=== PATIENT | female | born 1935 | race Caucasian/White ===

== ENCOUNTER 2016-10-05 19:19 | Emergency (ER) | payer MEDICARE ==
[~2016-10-05] VITALS: Ht 177.8 cm; Wt 90.0 kg
[~2016-10-05 19:19] MED LIST: ALENDRONATE70 MG PO; BACTRIM DS1 TAB PO; COUMADIN5 MG PO; FUROSEMIDE40 MG PO; LASIX 20 MG TAB20 MG PO; LASIX 40 MG40 MG/TAB PO; LEVOTHYROXIN75 MCG PO; LOPRESSOR12.5 MG PO; LOVENOX 10100 MG/1 M SC; METOPROL TAR25 MG PO; OMEPRAZOLE20 M1 PO; POTASSIUM CHLO20 ME1 PO; PRAVASTATIN SOD40 MG PO; SYMBICORT1 AE1 IN; VENTOLIN HFA IN; WARFARIN1 MG PO; WARFARIN4 MG PO
[2016-10-05] MEDS ORDERED: PRAVASTATIN SOD40 MG PO (19:50)
[2016-10-05] MEDS ORDERED: KLOR-CON M2020 MEQ PO (19:51)
[2016-10-05] MEDS ORDERED: LEVOTHYROXIN75 MC1 PO (19:52)
[2016-10-05] MEDS ORDERED: ALENDRONATE SOD70 MG PO (19:53)
[2016-10-05] MEDS ORDERED: OMEPRAZOLE20 M2 PO (19:53)
[2016-10-05] MEDS ORDERED: COUMADIN5 MG PO (19:54)
[2016-10-05] MEDS ORDERED: LOPRESSOR25 M1 PO (19:56)
[2016-10-05] MEDS ORDERED: MEDDOSEPAK PO (20:05)
[2016-10-05] MEDS ORDERED: LEVETIRACETAM500 MG PO (20:07)
[2016-10-05 20:15] VITALS: BP 141/67
== END 2016-10-05 20:15 | disposition home or self-care (01) ==
LOC: ED 19:19
DX: T63.421A Toxic effect of venom of ants, accidental (unintentional), initial encounter (principal); Y92.009 Unspecified place in unspecified non-institutional (private) residence as the place of occurrence of the external cause